=== PATIENT | female | born 1965 | race Caucasian/White ===

== ENCOUNTER 2019-02-12 14:53 | Inpatient (IN) ==
[2019-02-12 16:38] LABS: Appearance Urine Clear (Clear); Bilirubin Urine Negative (Negative); Blood Urine Trace (Negative); Color Urine Yellow; Glucose Urine UA Negative (Negative); Ketones Urine Negative (Negative); Leukocyte Esterase Urine Negative (Negative); Nitrite Urine Negative (Negative); Protein Urine Negative (Negative); Specific Gravity Urine <= 1.005 (1.000-1.030); Urobilinogen Urine Negative (Negative)
[2019-02-12 16:49] LABS: Hematocrit (blood only) 31.5 % (37-47); Mean Corpuscular Hemoglobin 29.9 pg (25-34); Mean Corpuscular Hgb Conc 31.7 g/dL (32-36); Mean Corpuscular Volume 94.3 fL (80-100); Nucleated RBC # (auto) 0.02 K/uL (0-0); Nucleated RBC % (auto) 0.5 %; Platelet Count 388 K/uL (130-400); RDW Standard Deviation 51.4 fL (36.4-46.3); Red Blood Count 3.34 M/uL (4.2-5.4); White Blood Count 3.56 K/uL (4.8-10.8)
[2019-02-12 16:52] LABS: Albumin Level 3.4 gm/dl (3.4-5.0); BUN Creatinine Ratio 14.2 (10-20); Calcium 9.3 mg/dl (8.5-10.1); Creatinine Clr Calc Pharmacy 27.3 ml/min; Est GFR (African American) 37.6; Est GFR (Non-African American) 32.4; Potassium 4.9 mmol/L (3.5-5.1)
[2019-02-12 16:53] LABS: Partial Thromboplastin Ratio 1.1; Partial Thromboplastin Time 29.6 Seconds (21.0-31.0); Prothrombin Time 10.3 Seconds (9.0-12.0)
--- NOTE | 2019-02-12 16:53 | XRay Report ---
XR chest 1V portable CLINICAL HISTORY: 53 years-old Female presenting with Sepsis. TECHNIQUE: Portable upright AP view of the chest was obtained. COMPARISON: 02/02/2019. FINDINGS: Cardiomediastinal silhouette normal. Lungs are hyperinflated. No focal opacity. No pleural effusion o r pneumothorax. Osseous structures normal. Upper abdomen normal. IMPRESSION: 1. Hyperinflation could suggest underlying emphysema or other obstructive lung disease. No focal inf iltrate to suggest pneumonia. Electronically signed by: Jamir Dc M.D. 02/12/2019 4:51 PM
[2019-02-12 16:55] LABS: Albumin Globulin Ratio 0.8 (0.9-2); Bilirubin,Total 0.4 mg/dl (0.2-1); Globulin 4.4 gm/dl (2.5-4.0); Total Protein 7.8 gm/dl (6.4-8.2)
[2019-02-12 17:06] LABS: Bacteria Urine 1+ (Negative); RBC Urine 0-4 /hpf (0-4); WBC Urine 0-5 /hpf (0-5)
[2019-02-12 17:20] LABS: Influenza A virus by PCR Neg for Influ A (Neg); Influenza B virus by PCR Neg for Influ B (Neg)
[2019-02-12 17:27] LABS: Dohle Bodies 1+; Immature Granulocytes # (auto) 0.33 K/uL (0.00-0.02); Immature Granulocytes % (auto) 9.3 %; Lymphocytes # (auto) 0.19 K/uL (1.2-3.4); Lymphocytes % (auto) 5.3 %; Monocytes % (auto) 5.6 %; Neutrophils # (auto) 2.84 K/uL (1.4-6.5); Neutrophils % (auto) 79.8 %
[2019-02-12] MEDS ORDERED: CEFEPIME 2,000 MG/20 ML VIAL IV STA (17:35)
[2019-02-12] MEDS ORDERED: SODIUM CHLORIDE 0.9% 1000ML 2,000 ML IV ONE (18:13)
--- NOTE | 2019-02-12 19:53 | Emergency Department Note ---
Entered by Moira Velasquez acting as a scribe for Jose Griffin MD History of Present Illness General Chief complaint: Fever Stated complaint: FEVER, RECENT KIDNEY TRANSPLANT Time Seen by Provider: 02/12/19 15:38 Source: patient Mode of arrival: ambulatory Limitations: no limitations History of Present Illness Provider complaint: Fever Onset (ago): day(s) (yesterday) Severity: similar to prior episodes Pain Consistency: + other (worsening) Maximum Pain Intensity: 0 Quality: + other (fever) Relieved By: + none Associated symptoms: + fever/chills (negative fever, positive chills), + nausea/vomiting (positive nausea, negative vomiting), + weakness and + other (Additional symptoms: fatigue, body aches. Denies: nasal congestion, sore throat); no cough and no rash Treatments prior to arrival: other (Tylenol at 1230) The patient is a 53 year old white female w/ PMHx of hypertension, gout, renal failure, kidney transplant, depression, anxiety, insomnia, lung nodule, proteinuria, lumbar degenerative disc disease who presents to the ED w/ CC of a worsening fever beginning yesterday. The patient reports that she had a slight fever yesterday and that her temperature jt to 103 degrees today. She states that she also had a slight fever when she was evaluated in the beginning of January. She notes that she was discharged 8 days ago on a course of antibiotics that she finished last night. The patient currently also complains of weakness, fatigue, body aches, nausea, and chills, but she denies any cough, vomiting, rashes, nasal congestion, and sore throat. She states that her symptoms feel similar to the flu, although she got the flu shot this year. She continues to report that she has not been eating and drinking much, although her bowel movements have been normal. She indicates that she had a right kidney transplant on November 08 and is still able to make urine. She mentions that she last took Tylenol for her symptoms at 1230 today. Home Medications Home Medications Medication Instructions Recorded Confirmed Type aspirin [Aspir-81] 81 mg PO QAM 12/01/18 02/12/19 History docusate sodium [Colace] 100 mg PO BID PRN 12/01/18 02/12/19 History ipratropium-albuterol [Combivent 1 puff INHALATION Q6H PRN 12/01/18 02/12/19 History Respimat] sulfamethoxazole-trimethoprim 1 tab PO 3XWK 12/01/18 02/12/19 History [Bactrim] tacrolimus [Prograf] 2 mg PO BID 12/01/18 02/12/19 History valganciclovir [Valcyte] 450 mg PO DAILY 12/01/18 02/12/19 History prednisone 5 mg PO QAM 02/02/19 02/12/19 History allopurinol 100 mg PO DAILY 02/12/19 02/12/19 History amlodipine 5 mg PO DAILY 02/12/19 02/12/19 History carvedilol 6.25 mg PO BID 02/12/19 02/12/19 History fluconazole 200 mg PO WK 02/12/19 02/12/19 History mycophenolate mofetil 1,000 mg PO BID 02/12/19 02/12/19 History omeprazole 20 mg PO QAM 02/12/19 02/12/19 History Allergies Allergy/AdvReac Type Severity Reaction Status Date / Time No Known Drug Allergies Allergy . Verified 02/12/19 16:50 Past Med/Surg History Social History Feels Safe at Home: Yes Smoking Status: Never smoker Review of Systems See HPI for pertinent positives & negatives. and A total of 10 systems reviewed and were otherwise negative Physical Exam Vital Signs Vital Signs - 24 hr 02/12/19 15:06 02/12/19 16:25 02/12/19 16:38 Temperature 36.9 C Temperature Source Oral Pulse Rate 94 H 78 79 Pulse Rate from SpO2 Sensor Pulse Rhythm Regular Pulse Strength Normal Respiratory Rate 20 19 16 Respiratory Effort / Characteristics Non-Labored Spontaneous Respiratory Depth Normal Respiratory Pattern Regular Blood Pressure 109/66 107/59 L Blood Pressure Mean 80 65 Blood Pressure Position Sitting Pulse Oximetry 99 Oxygen Delivery Method Room Air Sepsis Recent Fever Within 48 Hours No Sepsis Action Taken by Nursing No Action Required 02/12/19 17:00 02/12/19 17:30 02/12/19 18:00 Temperature Temperature Source Pulse Rate 72 77 73 Pulse Rate from SpO2 Sensor Pulse Rhythm Pulse Strength Respiratory Rate 24 17 Respiratory Effort / Characteristics Respiratory Depth Respiratory Pattern Blood Pressure Blood Pressure Mean Blood Pressure Position Pulse Oximetry Oxygen Delivery Method Sepsis Recent Fever Within 48 Hours Sepsis Action Taken by Nursing 02/12/19 18:12 02/12/19 18:13 02/12/19 18:30 Temperature Temperature Source Pulse Rate 74 71 70 Pulse Rate from SpO2 Sensor 74 71 70 Pulse Rhythm Pulse Strength Respiratory Rate 13 16 19 Respiratory Effort / Characteristics Respiratory Depth Respiratory Pattern Blood Pressure 116/69 119/77 Blood Pressure Mean 78 96 Blood Pressure Position Pulse Oximetry 98 98 98 Oxygen Delivery Method Sepsis Recent Fever Within 48 Hours Sepsis Action Taken by Nursing 02/12/19 18:31 02/12/19 19:06 Temperature Temperature Source Pulse Rate 73 Pulse Rate from SpO2 Sensor 73 80 Pulse Rhythm Pulse Strength Respiratory Rate 21 Respiratory Effort / Characteristics Respiratory Depth Respiratory Pattern Blood Pressure Blood Pressure Mean Blood Pressure Position Pulse Oximetry 98 98 Oxygen Delivery Method Sepsis Recent Fever Within 48 Hours Sepsis Action Taken by Nursing GENERAL: Well appearing, well nourished, NAD, non-toxic, very thin in appearance. EYE EXAM: Normal conjunctiva. PERRL, no anisocoria and EOM's grossly intact w/o pain. OROPHARYNX: Dry mucous membranes. Grossly normal dentition. NECK: Supple, no nuchal rigidity, no adenopathy, non-tender. No signs of meningismus. LUNGS: Clear to auscultation. Normal chest wall mechanics. HEART: NSR, no MRG. ABDOMEN: Abdomen soft, non-tender, normo-active bowel sounds, no masses, no rebound or guarding. BACK: No CVA TTP. SKIN: No rashes and no bruising. UPPER EXTREMITIES: Upper extremities are grossly normal. LOWER EXTREMITIES: No pitting edema. No calf pain. NEURO EXAM: A&O x3, cranial nerves II-XII grossly intact, normal speech, moves all 4 extremities on command w/o issue. Course Course 1552: The patient was evaluated in room B2, and a complete history and physical examination were performed. 1555: Orders were placed. The patient was placed on a school bus monitor at this t hermelindo. 180: I reviewed the patient's case with Dr. Patterson - Transplant ServiceTabitha. Dr. Patterson stated that the patient does not require transfer but should be admitted unless she has some precipitous decline. 1802: I checked on the patient and updated her on her results. She verbalized agreement to the treatment plan. 1811: I reviewed the patient's case with Tabitha Ortiz PA-C. Dr. Kim - HospitalistTabitha will evaluate the patient for further management. Consultations Consultation #1: I reviewed the patient's case with Dr. Patterson - Transplant ServiceTabitha. Dr. Patterson stated that the patient does not require transfer but should be admitted unless she has some precipitous decline. Time: 18:02 Consultation #2: I reviewed the patient's case with Tabitha Ortiz PA-C. Dr. Kim - HospitalistTabitha will evaluate the patient for further management. Time: 18:12 Administered Medications Sodium Chloride (Nss 1000ml) 2,000 mls @ 999 mls/hr IV .Q2H1M ONE Stop: 02/12/19 20:13 Last Admin: 02/12/19 18:17 Dose: 999 mls/hr Documented by: [id number] Discontinued Medications Cefepime HCl (Maxipime) 2,000 mg in 20 mls @ 5 mls/min IV NOW STA; Protocol Stop: 02/12/19 17:38 Last Admin: 02/12/19 18:12 Dose: 5 mls/min Documented by: [id number] Medical Decision Making Differential Diagnosis Differential diagnosis: Etiologies such as viral syndrome, otitis, pharyngitis, pneumonia, influenza, me ningitis, urinary tract infection, sepsis, bacteremia, as well as others were entertained. Medical Records Attestation: I reviewed the patient's medical records. I reviewed portions of the patient's old chart on the electronic medical record. The patient was recently transferred to [facility] for a fever in a renal transplant patient. Per the patient's hospital discharge summary from Dr. Mistry, the patient had E. coli that grew from a urine culture here at [facility]. The patient was started on broad spectrum antibiotics and transitioned to by mouth. She was on Bactrim prior to this. Home Medications Current Medication List: was personally reviewed by me Laboratory Data Attestation: I reviewed the patient's lab results. Result diagrams: 02/12/19 16:11 02/12/19 16:11 Lab Results 02/12/19 02/12/19 02/12/19 Range/Units 16:11 16:11 16:11 WBC 3.56 L (4.8-10.8) K/uL RBC 3.34 L (4.2-5.4) M/uL Hgb 10.0 L (12.0-16.0) g/dL Hct 31.5 L (37-47) % MCV 94.3 (80-100) fL MCH 29.9 (25-34) pg MCHC 31.7 L (32-36) g/dL RDW Std Deviation 51.4 H (36.4-46.3) fL RDW Coeff of Tena 15.0 H (11.5-14.5) % Plt Count 388 (130-400) K/uL MPV 9.0 (7.4-10.4) fL Immature Gran % (Auto) 9.3 % Neut % (Auto) 79.8 % Lymph % (Auto) 5.3 % Craven % (Auto) 5.6 % Eos % (Auto) 0.0 % Baso % (Auto) 0.0 % Immature Gran # (Auto) 0.33 H (0.00-0.02) K/uL Neut # (Auto) 2.84 (1.4-6.5) K/uL Lymph # (Auto) 0.19 L (1.2-3.4) K/uL Craven # (Auto) 0.20 (0.11-0.59) K/uL Eos # (Auto) 0.00 (0-0.5) K/uL Baso # (Auto) 0.00 (0-0.2) K/uL Absolute Nucleated RBC 0.02 H (0-0) K/uL Nucleated RBC % (auto) 0.5 % Hypersegmented Neuts Occasional Dohle Bodies 1+ PT 10.3 (9.0-12.0) Seconds INR 1.0 (0.9-1.1) APTT 29.6 (21.0-31.0) Seconds PTT Ratio 1.1 Sodium 132 L (136-145) mmol/L Potassium 4.9 (3.5-5.1) mmol/L Chloride 100 (98-107) mmol/L Carbon Dioxide 23 (21-32) mmol/L Anion Gap 9.0 (3-11) BUN 25 H (7-18) mg/dl Creatinine 1.76 H (0.6-1.2) mg/dl Est Cr Clr Drug Dosing 27.3 ml/min Est GFR ( Amer) 37.6 Est GFR (Non-Af Amer) 32.4 BUN/Creatinine Ratio 14.2 (10-20) Glucose 152 H (70-99) mg/dl Lactate (0.4-2.0) mmol/L Calcium 9.3 (8.5-10.1) mg/dl Total Bilirubin 0.4 (0.2-1) mg/dl AST 20 (15-37) U/L ALT 15 (12-78) U/L Alkaline Phosphatase 106 (45-117) U/L Total Protein 7.8 (6.4-8.2) gm/dl Albumin 3.4 (3.4-5.0) gm/dl Globulin 4.4 H (2.5-4.0) gm/dl Albumin/Globulin Ratio 0.8 L (0.9-2) Procalcitonin (0-0.5) ng/ml Urine Color Urine Appearance (Clear) Urine pH (4.5-7.5) Ur Specific Wilton (1.000-1.030) Urine Protein (Negative) Urine Glucose (UA) (Negative) Urine Ketones (Negative) Urine Blood (Negative) Urine Nitrite (Negative) Urine Bilirubin (Negative) Urine Urobilinogen (Negative) Ur Leukocyte Esterase (Negative) Urine RBC (0-4) /hpf Urine WBC (0-5) /hpf Ur Epithelial Cells (0-5) /lpf Urine Bacteria (Negative) Influenza Type A (PCR) (Neg) Influenza Type B (PCR) (Neg) 02/12/19 02/12/19 02/12/19 Range/Units 16:11 16:11 16:25 WBC (4.8-10.8) K/uL RBC (4.2-5.4) M/uL Hgb (12.0-16.0) g/dL Hct (37-47) % MCV (80-100) fL MCH (25-34) pg MCHC (32-36) g/dL RDW Std Deviation (36.4-46.3) fL RDW Coeff of Tena (11.5-14.5) % Plt Count (130-400) K/uL MPV (7.4-10.4) fL Immature Gran % (Auto) % Neut % (Auto) % Lymph % (Auto) % Craven % (Auto) % Eos % (Auto) % Baso % (Auto) % Immature Gran # (Auto) (0.00-0.02) K/uL Neut # (Auto) (1.4-6.5) K/uL Lymph # (Auto) (1.2-3.4) K/uL Craven # (Auto) (0.11-0.59) K/uL Eos # (Auto) (0-0.5) K/uL Baso # (Auto) (0-0.2) K/uL Absolute Nucleated RBC (0-0) K/uL Nucleated RBC % (auto) % Hypersegmented Neuts Dohle Bodies PT (9.0-12.0) Seconds INR (0.9-1.1) APTT (21.0-31.0) Seconds PTT Ratio Sodium (136-145) mmol/L Potassium (3.5-5.1) mmol/L Chloride (98-107) mmol/L Carbon Dioxide (21-32) mmol/L Anion Gap (3-11) BUN (7-18) mg/dl Creatinine (0.6-1.2) mg/dl Est Cr Clr Drug Dosing ml/min Est GFR ( Amer) Est GFR (Non-Af Amer) BUN/Creatinine Ratio (10-20) Glucose (70-99) mg/dl Lactate 0.9 (0.4-2.0) mmol/L Calcium (8.5-10.1) mg/dl Total Bilirubin (0.2-1) mg/dl AST (15-37) U/L ALT (12-78) U/L Alkaline Phosphatase (45-117) U/L Total Protein (6.4-8.2) gm/dl Albumin (3.4-5.0) gm/dl Globulin (2.5-4.0) gm/dl Albumin/Globulin Ratio (0.9-2) Procalcitonin 0.65 H (0-0.5) ng/ml Urine Color Yellow Urine Appearance Clear (Clear) Urine pH 6.0 (4.5-7.5) Ur Specific Wilton <= 1.005 (1.000-1.030) Urine Protein Negative (Negative) Urine Glucose (UA) Negative (Negative) Urine Ketones Negative (Negative) Urine Blood Trace H (Negative) Urine Nitrite Negative (Negative) Urine Bilirubin Negative (Negative) Urine Urobilinogen Negative (Negative) Ur Leukocyte Esterase Negative (Negative) Urine RBC 0-4 (0-4) /hpf Urine WBC 0-5 (0-5) /hpf Ur Epithelial Cells 10-20 H (0-5) /lpf Urine Bacteria 1+ H (Negative) Influenza Type A (PCR) (Neg) Influenza Type B (PCR) (Neg) 02/12/19 Range/Units 16:25 WBC (4.8-10.8) K/uL RBC (4.2-5.4) M/uL Hgb (12.0-16.0) g/dL Hct (37-47) % MCV (80-100) fL MCH (25-34) pg MCHC (32-36) g/dL RDW Std Deviation (36.4-46.3) fL RDW Coeff of Tena (11.5-14.5) % Plt Count (130-400) K/uL MPV (7.4-10.4) fL Immature Gran % (Auto) % Neut % (Auto) % Lymph % (Auto) % Craven % (Auto) % Eos % (Auto) % Baso % (Auto) % Immature Gran # (Auto) (0.00-0.02) K/uL Neut # (Auto) (1.4-6.5) K/uL Lymph # (Auto) (1.2-3.4) K/uL Craven # (Auto) (0.11-0.59) K/uL Eos # (Auto) (0-0.5) K/uL Baso # (Auto) (0-0.2) K/uL Absolute Nucleated RBC (0-0) K/uL Nucleated RBC % (auto) % Hypersegmented Neuts Dohle Bodies PT (9.0-12.0) Seconds INR (0.9-1.1) APTT (21.0-31.0) Seconds PTT Ratio Sodium (136-145) mmol/L Potassium (3.5-5.1) mmol/L Chloride (98-107) mmol/L Carbon Dioxide (21-32) mmol/L Anion Gap (3-11) BUN (7-18) mg/dl Creatinine (0.6-1.2) mg/dl Est Cr Clr Drug Dosing ml/min Est GFR ( Amer) Est GFR (Non-Af Amer) BUN/Creatinine Ratio (10-20) Glucose (70-99) mg/dl Lactate (0.4-2.0) mmol/L Calcium (8.5-10.1) mg/dl Total Bilirubin (0.2-1) mg/dl AST (15-37) U/L ALT (12-78) U/L Alkaline Phosphatase (45-117) U/L Total Protein (6.4-8.2) gm/dl Albumin (3.4-5.0) gm/dl Globulin (2.5-4.0) gm/dl Albumin/Globulin Ratio (0.9-2) Procalcitonin (0-0.5) ng/ml Urine Color Urine Appearance (Clear) Urine pH (4.5-7.5) Ur Specific Wilton (1.000-1.030) Urine Protein (Negative) Urine Glucose (UA) (Negative) Urine Ketones (Negative) Urine Blood (Negative) Urine Nitrite (Negative) Urine Bilirubin (Negative) Urine Urobilinogen (Negative) Ur Leukocyte Esterase (Negative) Urine RBC (0-4) /hpf Urine WBC (0-5) /hpf Ur Epithelial Cells (0-5) /lpf Urine Bacteria (Negative) Influenza Type A (PCR) Neg for Influ A (Neg) Influenza Type B (PCR) Neg for Influ B (Neg) Imaging Data Radiologist's Impression: Radiology results as stated below per my review and the radiologist's interpretation: XR chest 1V portable CLINICAL HISTORY: 53 years-old Female presenting with Sepsis. TECHNIQUE: Portable upright AP view of the chest was obtained. COMPARISON: 02/02/2019. FINDINGS: Cardiomediastinal silhouette normal. Lungs are hyperinflated. No focal opacity. No pleural effusion or pneumothorax. Osseous structures normal. Upper abdomen normal. IMPRESSION: 1. Hyperinflation could suggest underlying emphysema or other obstructive lung disease. No focal infiltrate to suggest pneumonia. Electronically signed by: Jamir Dc M.D. 02/12/2019 4:51 PM Blood Pressure Blood Pressure Findings: Normal blood pressure MDM Narrative The patient is a 53 year old white female w/ PMHx of hypertension, gout, renal failure, kidney transplant, depression, anxiety, insomnia, lung nodule, proteinuria, lumbar degenerative disc disease who presents to the ED w/ CC of a worsening fever beginning yesterday. Patient was seen and evaluated the bedside. The patient had related of developing fever. The patient did have a recent transferred admission for fever and transplant. The patient did have blood work lactate and blood cultures and urine. The patient does have some mild leukopenia. Chronic and stable anemia. The patient has normal coagulation studies. Potentially mild SOLOMON. The patient was ordered IV fluids. The patient's pro Ralph is elevated. Flu is negative. Urinalysis does not appear to be grossly infected. We will order a MRSA swab and start on cefepime given the patient's immunocompromised status and recent history. This does appear to be more viral however, we will continue to treat empirically until cultures come back or another source presents. No signs of any cellulitis or rash. I did speak with the transfer center and spoke with Dr. Patterson with the transplant team at [facility] who after further discussion was agreeable to have the patient admitted at [facility] and if anything changed could consider transfer in the future. I believe is reasonable at this time as the patient does not appear toxic and has reassuring vitals. I did speak the on-call hospitalist agreed to further evaluate treat the patient. Patient was admitted to the medicine service. Impression & Plan Fever, Kidney transplanted, History of immunosuppressive therapy, Leukopenia Discharge Plan Visit Data Chief Complaint: Fever Stated Complaint: FEVER, RECENT KIDNEY TRANSPLANT ED Provider: Jose Griffin Discharge Problem: Fever, Kidney transplanted, History of immunosuppressive therapy, Leukopenia Patient Disposition: Admitted As Inpatient Forms Stand Alone Forms: My [facility] Prescriptions Prescriptions: No Action valganciclovir [Valcyte] 450 mg Tablet 450 mg PO DAILY RF: 0 sulfamethoxazole-trimethoprim [Bactrim] 400-80 mg Tablet 1 tab PO 3XWK RF: 0 aspirin [Aspir-81] 81 mg Tablet,Delayed Release (Dr/Ec) 81 mg PO QAM RF: 0 docusate sodium [Colace] 100 mg Capsule 100 mg PO BID PRN (Reason: Constipation) RF: 0 tacrolimus [Prograf] 1 mg Capsule 2 mg PO BID RF: 0 Combivent Respimat 20-100 mcg/actuation Mist 1 puff INHALATION Q6H PRN (Reason: Shortness Of Breath Or Wheezing) RF: 0 prednisone 5 mg tablet 5 mg PO QAM RF: 0 carvedilol 6.25 mg tablet 6.25 mg PO BID RF: 0 mycophenolate mofetil 250 mg capsule 1,000 mg PO BID RF: 0 fluconazole 200 mg tablet 200 mg PO WK RF: 0 amlodipine 5 mg tablet 5 mg PO DAILY RF: 0 allopurinol 100 mg tablet 100 mg PO DAILY RF: 0 omeprazole 20 mg capsule,delayed release(DR/EC) 20 mg PO QAM RF: 0 Referrals Referrals: Ady Bailey DO [Primary Care Provider] - Discharge Problem: Fever Qualifiers: Fever type: unspecified Qualified Code(s): R50.9 - Fever, unspecified Leukopenia Qualifiers: Leukopenia type: unspecified Qualified Code(s): D72.819 - Decreased white blood cell count, unspecified The scribe's documentation has been prepared under my direction and personally reviewed by me in its entirety. I confirm that the note above accurately reflects all work, treatment, procedures, and medical decision making performed by me.
--- NOTE | 2019-02-12 20:03 | History & Physical Report ---
Date of Service February 12, 2019 Assessment & Plan (1) Fever: (2) Recent urinary tract infection: This is a 53-year-old female with a PMH of R kidney transplant with HCV+ organ performed on 11/08/18 for unknown cause and recent E. coli UTI who presents with fever since yesterday. -Recent E. coli UTI during [facility] admission on February 02. Completed Keflex course yesterday, then developed fever (tmax 103 F) and chills and decreased appetite -In ED, patient afebrile and hemodynamically stable. Leukopenic at 3.56. Cr 1.76 (Cr ~1.4-1.9 over past few months). Lactate normal. UA with 1+ bacteria and no urine nitrite or leuk esterase -ED physician discussed with Dr. Patterson of [facility] transplant service, who feels comfortable with patient staying at [facility] for empiric abx with cefepime while awaiting urine and blood cultures -Blood and urine cultures pending, MRSA swab pending (3) S/P kidney transplant: (4) History of immunosuppressive therapy: H/o R renal transplant with HCV+ organ performed on 11/08/18 at [facility] for unknown cause -Continue immunosuppression regimen of Prograf (dose recently decreased to 1mg QAM and 0.5mg WPM on 02/[address] Thompson), Cellcept 1 g BID and prednisone 5mg daily -Monitor kidney function closely -Nephro consulted (5) HTN (hypertension): Normotensive -Continue carvedilol, amlodipine DVT Ppx: SCDs Code status: FULL PCP: Leo Dispo: Admitted to PCU. Case mgmt consult placed for questions regarding recent insurance change Patient seen in collaboration with Dr. Kim. Please see addendum. History of Present Illness Chief Complaint: Fever, recent UTI Primary Care Provider: Ady Bailey, This is a 53-year-old female with a PMH of R kidney transplant with HCV+ organ performed on 11/08/18 for unknown cause and recent E. coli UTI who presents with fever since yesterday. Patient was transferred to [facility] on February 02 due to fever of 103.5 in the setting of recent renal transplant. Was evaluated at [facility] and urine culture grew E. coli. Resp PCR, CMV, EBV were negative. Was discharged home on Keflex course, which she completed yesterday. Patient has been feeling better until yesterday afternoon when she developed a fever of 100.1 with associated chills and decreased appetite. Fever increased to 103 F today, so she came to the ED for further evaluation. Endorses cloudy urine but denies hematuria pyuria or dysuria. No lightheadedness, visual changes, cough, sore throat, chest pain, palpitations, shortness of breath, vomiting, abdominal pain, diarrhea or constipation. Took Tylenol prior to arrival. In ED, patient found to be afebrile and hemodynamically stable. Leukopenic at 3.56 with hgb stable ~10. Cr 1.76 (downtrending from 1.99 10 days ago). Lactate normal. UA with 1+ bacteria and no urine nitrite or leuk esterase. ED physician discussed with Dr. Patterson of [facility] transplant service, who feels comfortable with patient staying at [facility] for empiric abx with cefepime while awaiting urine and blood cultures. Patient to continue immunosuppression regimen of Prograf (dose recently decreased to 1mg QAM and 0.5mg WPM on 02/[address] Thompson), Cellcept 1 g BID and prednisone 5mg daily. Allergies Allergy/AdvReac Type Severity Reaction Status Date / Time No Known Drug Allergies Allergy . Verified 02/12/19 16:50 Home Medications Home Medications Medication Instructions Recorded Confirmed Type aspirin [Aspir-81] 81 mg PO QAM 12/01/18 02/12/19 History docusate sodium [Colace] 100 mg PO BID PRN 12/01/18 02/12/19 History sulfamethoxazole-trimethoprim 1 tab PO MOWEFR@0900 12/01/18 02/12/19 History [Bactrim] valganciclovir [Valcyte] 450 mg PO DAILY 12/01/18 02/12/19 History prednisone 5 mg PO QAM 02/02/19 02/12/19 History allopurinol 100 mg PO DAILY 02/12/19 02/12/19 History amlodipine 5 mg PO DAILY 02/12/19 02/12/19 History carvedilol 6.25 mg PO BID 02/12/19 02/12/19 History fluconazole 200 mg PO MO@0900 02/12/19 02/12/19 History ipratropium-albuterol [Combivent 1 puff INHALATION Q6H PRN 02/12/19 02/12/19 History Respimat] mycophenolate mofetil 1,000 mg PO BID 02/12/19 02/12/19 History omeprazole 20 mg PO QAM 02/12/19 02/12/19 History tacrolimus [Prograf] 0.5 mg PO HS 02/12/19 02/12/19 History tacrolimus [Prograf] 1 mg PO DAILY 02/12/19 02/12/19 History Past Med/Surg History Medical History (Updated 02/13/19 @ 08:53 by Roberta Jacobs MD, PhD) Depression with anxiety Gout chronic of right foot, 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 Pt reports sudden renal failure, without dialysis. Peritoneal catheter placement scheduled but received transplant prior to cath placement. History of hysterectomy (Chronic) Family History Other Family history not known due to adoption Social History Preferred Language: Setswana Beliefs That Will Affect Care: None Current Living Situation: Alone Feels Safe at Home: Yes Safety Concerns: Feels Safe At This Time Smoking Status: Former smoker Hx Alcohol Use: No Hx Substance Use: No Review of Systems Review of Systems: At least ten systems reviewed and negative except as noted in the HPI. Physical Exam Physical Exam: General Appearance: WD/WN, vitals as above, NAD, sitting up in bed, pleasant, conversing easily Head: normocephalic, atraumatic Eyes: normal inspection, PERRL, conjunctivae normal, anicteric sclerae ENT: external ear and nose normal, oropharynx normal Neck: trachea midline, no thyromegaly normal visual inspection Respiratory: lungs clear to auscultation, no wheeze, rales, rhonchi. Normal insp/exp effort, no accessory muscle use Cardiovascular: regular rate, rhythm, no murmur, normal peripheral pulses. Vessels: no JVD or carotid bruit Chest: normal inspection of chest Abdomen/GI: normal bowel sounds, soft, nontender, no hepatosplenomegaly Extremities/Musculoskelatal: no cyanosis or clubbing, extremities motor strength 5/5 Neurologic: PERRL, EOMI, accommodation nl, no face palsy, no dysarthria CN's II-XI intact bilaterally and moves all extremities Psychiatric: A+Ox3, euthymic affect Skin: no rashes, normal color, warm/dry Results & Data Vital Signs (Past 12 Hours) Vital Signs Temp Pulse Resp BP Pulse Ox 02/12/19 19:06 98 02/12/19 18:31 73 21 98 02/12/19 18:30 70 19 119/77 98 02/12/19 18:13 71 16 98 02/12/19 18:12 74 13 116/69 98 02/12/19 18:00 73 17 02/12/19 17:30 77 24 02/12/19 17:00 72 02/12/19 16:38 79 16 02/12/19 16:25 78 19 107/59 L 02/12/19 15:06 36.9 C 94 H 20 109/66 99 Laboratory Results Short CBC 02/12/19 02/12/19 Range/Units 16:11 16:11 WBC 3.56 L (4.8-10.8) K/uL RBC 3.34 L (4.2-5.4) M/uL Hgb 10.0 L (12.0-16.0) g/dL Hct 31.5 L (37-47) % Plt Count 388 (130-400) K/uL Creatinine 1.76 H (0.6-1.2) mg/dl BMP 02/12/19 16:11 Sodium 132 L Potassium 4.9 Chloride 100 Carbon Dioxide 23 BUN 25 H Creatinine 1.76 H Glucose 152 H Calcium 9.3 Liver Function 02/12/19 Range/Units 16:11 Total Bilirubin 0.4 (0.2-1) mg/dl AST 20 (15-37) U/L ALT 15 (12-78) U/L Alkaline Phosphatase 106 (45-117) U/L Albumin 3.4 (3.4-5.0) gm/dl Urine 02/12/19 Range/Units 16:25 Urine Color Yellow Urine Appearance Clear (Clear) Urine pH 6.0 (4.5-7.5) Ur Specific [place] <= 1.005 (1.000-1.030) Urine Protein Negative (Negative) Urine Glucose (UA) Negative (Negative) Diagnostic Findings CXR: IMPRESSION: 1. Hyperinflation could suggest underlying emphysema or other obstructive lung disease. No focal infiltrate to suggest pneumonia. Code Status & VTE Plan VTE Prophylaxis Plan VTE Prophylaxis will be ordered: Yes Supervising Physician Co-Signing Physician Notes Care coordinated with otoniel Fernandez PA-C. Agree with above note. Patient seen and examined. Please refer to her notes for full details. Vital signs reviewed. Physical exam: General exam: Alert and oriented. Not in acute distress. CVS: S1 and S2 heard, regular rate and rhythm, no murmurs. RS: Clear to auscultation, no wheezing or crackles. ABD: Soft, bowel sounds present, nontender, no distention. POST ACUTE CARE NURSE: Nonfocal. EXT: No edema, no erythema. Labs: Reviewed. Assessment and plan: 53F who recently had renal transplant (10/2018)with HCV + donor and just completed HCV treatment, On feb 02 she was transferred from [facility] to [facility] because of high fevers and found to have e.coli UTI was treated and discharged home with po keflex. Just finished keflex. Yesterday (02/11) she felt mild feverish and today morning (02/12) she woke with fever of 101F and later it was 103F and she came to ER. Possible UTI. Er physician talked with [facility] transplant and was ok to admit to [facility] and start on iv cefepime and follow cx and also MRSA swab. Flu was negative .Currently afebrile and hemodynamically stable. Fevers Leukopenia possible recurrent uti will follow cx possible viral infection flu negative recently treated for e.coli uti on iv cefepime will follow cx currently afebrile and hemodynamically stable S/p renal transplant'for renal failure of unknown cause continue immunosuppressant drugs. cr 1.7 gentle fluids consulted nephrology. Other diagnosis and plan of care as per Jim Keller PA-C. Raymundo mendez MD. (1) Fever Fever type: unspecified Qualified Code(s): R50.9 - Fever, unspecified
[2019-02-12] MEDS ORDERED: IPRATROPIUM BROMIDE/ALBUTEROL respimat INH INH PRN (21:12)
[2019-02-12] MEDS ORDERED: ACETAMINOPHEN 325 MG TAB PO PRN (21:12)
[2019-02-12] MEDS ORDERED: DOCUSATE SODIUM 100 MG CAP PO PRN (21:12)
[2019-02-12] MEDS ORDERED: CEFEPIME CONSULT ACTIVE PRN (21:31)
[2019-02-12] MEDS: MYCOPHENOLATE MOFETIL 250 MG CAP PO SCH (21:58)
[2019-02-12] MEDS: carvediloL 6.25 MG TAB PO SCH (21:59)
[2019-02-12] MEDS: TACROLIMUS 0.5 MG CAP PO SCH (22:00)
[2019-02-12] MEDS: SODIUM CHLORIDE 0.9% 1000ML 1,000 ML IV SCH (22:01)
[2019-02-13 06:21] LABS: Hematocrit (blood only) 28.8 % (37-47); Hemoglobin 8.9 g/dL (12.0-16.0); Mean Corpuscular Hemoglobin 29.4 pg (25-34); Mean Corpuscular Hgb Conc 30.9 g/dL (32-36); Mean Platelet Volume 8.5 fL (7.4-10.4); Platelet Count 300 K/uL (130-400); RDW Coefficient of Variation 15.1 % (11.5-14.5); RDW Standard Deviation 51.6 fL (36.4-46.3); Red Blood Count 3.03 M/uL (4.2-5.4); White Blood Count 2.15 K/uL (4.8-10.8)
[2019-02-13 06:52] LABS: BUN Creatinine Ratio 15.5 (10-20); Calcium 8.5 mg/dl (8.5-10.1); Creatinine Clr Calc Pharmacy 32.5 ml/min; Est GFR (African American) 47.5; Potassium 4.3 mmol/L (3.5-5.1)
[2019-02-13 06:59] LABS: Dohle Bodies 2+; Immature Granulocytes # (auto) 0.02 K/uL (0.00-0.02); Immature Granulocytes % (auto) 0.9 %; Lymphocytes # (auto) 0.31 K/uL (1.2-3.4); Lymphocytes % (auto) 14.4 %; Monocytes # (auto) 0.29 K/uL (0.11-0.59); Monocytes % (auto) 13.5 %; Neutrophils # (auto) 1.53 K/uL (1.4-6.5); Neutrophils % (auto) 71.2 %
[2019-02-13] MEDS: CEFEPIME 2,000 MG in SYRINGE 7.5 ML IV SCH ×2 (07:53→20:34)
[2019-02-13] MEDS: AMLODIPINE BESYLATE 5 MG TAB PO SCH (07:54)
[2019-02-13] MEDS: ASPIRIN 81 MG ECTAB PO SCH (07:54)
[2019-02-13] MEDS: predniSONE 5 MG TAB PO SCH (07:54)
[2019-02-13] MEDS: allopurinoL 100 MG TAB PO SCH (07:54)
[2019-02-13] MEDS: PANTOprazole 40 MG TAB PO SCH (07:55)
[2019-02-13] MEDS: TACROLIMUS 1 MG CAP PO SCH (07:55)
[2019-02-13] MEDS: carvediloL 6.25 MG TAB PO SCH ×2 (07:55→20:31)
[2019-02-13] MEDS: MYCOPHENOLATE MOFETIL 250 MG CAP PO SCH ×2 (07:56→20:31)
--- NOTE | 2019-02-13 08:11 | Nephrology Consultation ---
Date of Consultation February 13, 2019 Assessment & Plan (1) S/P kidney transplant: allograft function currently at/near baseline -lowered MMF to 500 mg bid given differential on CBC; else no immunosuppression changes -daily bmp -cont nephrotoxin avoidance Present on Admission?: Yes (2) History of immunosuppressive therapy: fever work up at [facility] last week negative >> blood cxxs, urine cxs, resp PCR, CMV DNA, plasma BK -reported per pt current OP immunosuppression is tacro 1/0.5; cellcept 1 gm bid; predisone 5 mg daily -on 02/07 she completed 3 month course of glecaprevir-pibretasvir (mavyret) > for f/u blood work 02/15 -her tacrolimus levels during [facility] admission ranged from 10.4-13, 13 on day of d/ c >> FK dose was lowered from 03/01 to 1/0.5 (target 8-10) -remains on valganciclovir, bactrim, weekly fluconazole >>discharged home from [facility] on 02/04 w/ keflex 500 mg bid for presumptive UTI > [facility] urine cx + E coli; urine specimens earlier at OP clinic same day negative; UTI dx not especially convincing from last week to explain F; note that presenting urinalysis/microscopy last evening bland -pls send tacro TROUGH tomorrow AM Present on Admission?: Yes (3) Fever: fever prior to admission; since presentation has been afebrile; had tylenol prior to presentation; recurrent since 01/31. -agree w/ repeat BK PCR serum ->>>would also check for anaplasmosis, CMV serum PCR DNA, HIV ->>>pls consult infectious diseases Present on Admission?: No (4) Lymphopenia: -daily cbc/d; have inquiries pending about whether she had neupogen or not last week ->>>get peripheral smear if not done Present on Admission?: Yes (5) Acute on chronic anemia: -daily CBC/D as above ->>>pls order transferrin sat for am Present on Admission?: Yes History of Present Illness Reason for Consultation: renal transplant pt w/ recurrent F, recent UTI Requesting Physician: Dr Kim Attending Physician: Paddy Tran MD History of Present Illness 53 yo F renal transplant pt whom I'm asked to see for recurrent F after she was admitted yesterday for same; has been afebrile since presentation. She underw ent donor HCV+ renal transplant in October at [facility]. Initially her creatinine stabilized in mid 1's in november; then in December trended up to 1.7- 1.8 range for no clear reason; has bounced 1.4-1.8 ever since; most recently on 02/07 was 1.5. Her immunosuppression is FK 1/0.5 (recently decreased),MMF 1 gm bid, prednisone 5 mg daily. She recently completed mavyret on 02/07/19. She had a mid November allograft bx showing no rejection. Last week on 01/31 she developed F to 102.4 and flulike sx; ER eval recommended but pt refused. Then seen in [facility] txplt clinic 12.5 w/ temp 103.5 w/ emesis (creat 1.8; K 5.3) and sent to [facility] ER w/ transfer to [facility] where she was admitted 02/02-02/04. She had a contaminated urine specimen at [facility] ER w/ E coli on urine cx; dx'd ultimately w/ presumed complicated UTI (do note however that urine studies done same day in OP clinic were negative). All other infectious studies were negative. CMV was undetectable on serum PCR as was BK virus. She has not had other positive urine cxs since transplant or in year prior to it. No voiding sx in since txplt. She was d/c home w/ keflex which she completed on 02/11; then on 02/12 at home had F to 103 w/ chills; took tylenol and came to ER. She has also recently developed neutropenia, lymphopenia, worsening chronic anemia. A differential on CBC on 02/06 at [facility] showed a few intracytoplasmic neutrophilic inclusions; consideration of anaplasmosis PCR recommended; no results found. Since arrival here, she has been not neutropenic but profoundly lymphopenic w/ ongoing acute on chronic anemia (hgb less than 10 now; had been in 10-12 range). There was consideration of her getting neupogen in [facility]; have to verify if had or not. She is currently getting NS at 50 mL hourly and cefepime; no other antimicrobials. She is about 1L + since presentation (one unmeasured void) and has not had abnormal bp, HR. Creatinine was 1.8 on presentation and 1.5 this am. Lactate, transaminases, alk phos wnl. Allergies Allergy/AdvReac Type Severity Reaction Status Date / Time No Known Drug Allergies Allergy . Verified 02/12/19 16:50 Home Medications Home Medications Medication Instructions Recorded Confirmed Type aspirin [Aspir-81] 81 mg PO QAM 12/01/18 02/12/19 History docusate sodium [Colace] 100 mg PO BID PRN 12/01/18 02/12/19 History sulfamethoxazole-trimethoprim 1 tab PO MOWEFR@0900 12/01/18 02/12/19 History [Bactrim] valganciclovir [Valcyte] 450 mg PO DAILY 12/01/18 02/12/19 History prednisone 5 mg PO QAM 02/02/19 02/12/19 History allopurinol 100 mg PO DAILY 02/12/19 02/12/19 History amlodipine 5 mg PO DAILY 02/12/19 02/12/19 History carvedilol 6.25 mg PO BID 02/12/19 02/12/19 History fluconazole 200 mg PO MO@0900 02/12/19 02/12/19 History ipratropium-albuterol [Combivent 1 puff INHALATION Q6H PRN 02/12/19 02/12/19 History Respimat] mycophenolate mofetil 1,000 mg PO BID 02/12/19 02/12/19 History omeprazole 20 mg PO QAM 02/12/19 02/12/19 History tacrolimus [Prograf] 0.5 mg PO HS 02/12/19 02/12/19 History tacrolimus [Prograf] 1 mg PO DAILY 02/12/19 02/12/19 History Patient History Medical History (Updated 02/13/19 @ 08:53 by Roberta Jacobs MD, PhD) Depression with anxiety Gout chronic of right foot, 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 Pt reports sudden renal failure, without dialysis. Peritoneal catheter placement scheduled but received transplant prior to cath placement. 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), + chills, + body aches (had recurrence of flu like sx prior to admission this time as well) and + anorexia; no weight loss Eyes: no worsening vision Ear, Nose, Mouth, Throat: no tinnitus, no sore throat and no dysphagia Respiratory: no cough and no dyspnea Cardiovascular: no chest pain, no palpitations, no lightheadedness and no edema Gastrointestinal: + nausea; no abdominal pain (including no pain over allograft), no early satiety, no vomiting, no change in bowel habits and no diarrhea/loose stools Genitourinary: no dysuria, no difficulty urinating, no urinary frequency, no urinary hesitancy, no urinary urgency, no urinary incontinence and no decreased urination Musculoskeletal: + body aches (prior to admissoin); no back pain, no swelling and no stiffness Integumentary: no rash and no non-healing lesions Neurologic: + generalized weakness; no localized weakness, no loss of sensation, no dizziness, no headache(s), no abnormal speech, no confusion and no memory loss Psychiatric: no behavioral changes Endocrine: + cold intolerance Hematologic / Lymphatic: no easy bleeding, no easy bruising and no night sweats Physical Exam Constitutional: WD/WN, vitals as above well developed, + thin and + cachectic; no acute distress and + uncooperative Eyes: no EOM movement deficit ENMT: Mouth: + dry oral mucous membranes Neck: no nuchal rigidity Respiratory: normal respiratory effort Auscultation: lungs clear to au scultation bilaterally Cardiovascular: RRR, no murmur, no edema Gastrointestinal (Abdomen): normal bowel sounds, soft, nontender, no hepatos plenomegaly NT RLQ allograft Musculoskeletal: Extremities: strength 5/5 throughout Skin: no rashes, warm and dry Neurologic: [place], fluent speech, no tremor Psychiatric: A+Ox3, euthymic affect Genitourinary: no mccarthy Results & Data Vital Signs (Past 12 Hours) Vital Signs Temp Pulse Pulse Pulse Resp BP Pulse Ox 02/13/19 07:11 37.4 C 81 17 117/71 98 02/13/19 04:29 37.5 C 84 16 109/60 96 02/13/19 00:00 62 02/12/19 23:38 37.4 C 79 18 132/70 97 02/12/19 21:15 79 02/12/19 21:00 37.2 C 88 18 154/104 H 98 Laboratory Results 02/13/19 06:01 02/13/19 06:01 influenza swabs negative; BK DNA plasma pending Diagnostic Findings cxr > 1. Hyperinflation could suggest underlying emphysema or other obstructive lung disease. No focal infiltrate to suggest pneumonia. (1) Fever Fever type: unspecified Qualified Code(s): R50.9 - Fever, unspecified
[2019-02-13] MEDS ORDERED: FLUCONAZOLE 100 MG TAB PO SCH (09:00)
[2019-02-13] MEDS ORDERED: SULFA/TRIMETH 400/80MG TAB PO SCH (09:00)
[2019-02-13] MEDS ORDERED: VALGANCICLOVIR 450 MG PO SCH (09:00)
[2019-02-13] MEDS: SODIUM CHLORIDE 0.9% 1000ML 1,000 ML IV SCH (16:39)
[2019-02-13] MEDS ORDERED: CEFEPIME 2,000 MG in SYRINGE 7.5 ML IV SCH (18:00)
[2019-02-13] MEDS: TACROLIMUS 0.5 MG CAP PO SCH (20:31)
--- NOTE | 2019-02-13 21:27 | Hospitalist Progress Note ---
Date of Service February 13, 2019 Assessment & Plan (1) Fever: Recurrent fever in immunosuppressed renal transplant patient. Recent E coli UTI treated with course of cephalexin. No oral, pulmonary, GI, symptoms at this time. Consider recurrent UTI- urine culture negative so far. Patient CMV AB + before transplant and treated with course of valganciclovir. Consider CMV viremia- check CMV PCR. Consider EBV- check PCR. 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 Patient treated with course of glecaprevir / pibrentasvir. HCV unlikely, but will check HCV PCR. History of tick exposure several months ago. Doubt tick-borne disease, but will check tick-borne PCR panel. Continue empiric cefepime. Check US transplanted kidney. Consult ID. Consider noninfectious etiologies if fever persists and no identified infection. Addendum: [place] [facility] [place]18 Varicella zoster IgG + 11/08/18 RPR nonreactive 11/08/18 Quantiferon-TB gold + 11/08/18 HIV 1/2 negative 11/08/18 hep C AB negative 11/08/18 hep B s AG negative 11/08/18 hep B s AB negative 11/08/18 hep B core AB negative 11/08/18 EBV IgG + 11/08/18 CMV IgG + 12/01/18 hep B s AG negative 12/01/18 HCV RNA negative 12/01/18 HBV viral load negative 12/01/18 HIV 1/2 AG/AB negative 12/01/18 RPR nonreactive 12/07/18 hep B s AG negative 12/07/18 HCV RNA negative 12/07/18 HBV viral load negative 12/07/18 hep B s AB negative 12/07/18 HIV 1/2 AG/AB negative 12/07/18 RPR nonreactive 12/12/18 BK virus PCR negative 12/14/18 CMV PCR negative 12/14/18 BK virus PCR negative 12/19/18 BK virus PCR negative 01/05/19 BK virus PCR negative 01/11/19 HCV RNA negative 01/17/19 BK virus PCR negative 01/24/19 BK virus PCR negative 02/01/19 hep B s AG negative 02/01/19 HCV RNA negative 02/01/19 HBV DNA negative 02/01/19 hep B s AB negative 02/01/19 HIV 1/2 AG/AB negative 02/01/19 RPR nonreactive 02/01/19 BK virus DNA negative 02/02/19 CMV IgM negative 02/02/19 CMV IgG + 02/02/19 CMV DNA PCR negative 02/02/19 EBV-VCA IgM negative 02/02/19 EBV-VCA IgG + 02/02/19 EBV DNA PCR negative 02/02/19 blood culture x 2 negative 02/02/19 respiratory PCR negative 02/02/19 urine culture < 10,000 mixed normal kyung (2) S/P kidney transplant: Progressive renal failure. Records reviewed. 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 Apparently exact etiology of renal failure not determined. Status post cadaveric renal transplant 11/08/18 at [facility]. Allograft biopsy 12/14/18- no evidence of rejection. Receiving immunosuppressive therapy with tacrolimus, mycophenolate mofetil, prednisone. Receiving prophylactic Rx with TMP/sulfa and fluconazole. Nephrology consulted. Recent creatinines- 1.7 on 01/05/19, 1.5 on 01/24/19, 1.8 on 02/02/19. Creatinine at time of admission 1.76. Creatinine today = 1.45. (3) Leukopenia: Could be secondary to meds or infection. Follow. (4) Acute on chronic anemia: Could be secondary to meds or infection. Follow. (5) HTN (hypertension): Hemodynamically stable. Continue carvedilol and amlodipine. (6) DVT prophylaxis: SCD's ordered. Ambulate. (7) Discharge planning issues: Anticipated discharge to home. Internal Medicine follow-up with Dr. Bailey. Follow-up with renal [place] team [place] [facility] [place] home health outreach coordinator: Drake Douglass [phone] Subjective Recheck for fever and other problems. Patient seen in their room around 1530. Cadaveric renal transplant recipient. Recent fever attributed to E coli UTI, treated with course of cephalexin. Recurrent fever after finishing course of antibiotic therapy. No pharyngitis, stomatitis. No cough. No nausea, vomiting, diarrhea. No abdominal pain. No dysuria or hematuria. Review of Systems: As noted above. Physical Exam Constitutional: no acute distress Eyes: + anicteric sclerae ENMT: external ear and nose normal, oropharynx normal Respiratory: no respiratory distress Auscultation: lungs clear to auscultation bilaterally Cardiovascular: Rate/Rhythm: regular rate and regular rhythm Heart Sounds: no gallop, no murmur and no cardiac rub Vessels: no JVD Extremities: no calf tenderness and no edema Gastrointestinal (Abdomen): normal bowel sounds, soft, nontender, no hepatosplenomegaly Skin: no rashes, warm and dry Psychiatric: Orientation: alert and oriented x 3 Results & Data Vital Signs (Past 12 Hours) Vital Signs Temp Pulse Pulse Resp BP Pulse Ox 02/13/19 19:37 37.6 C 73 18 109/56 L 99 02/13/19 19:14 37.6 C H 02/13/19 17:51 38.0 C H 02/13/19 16:35 37.7 C H 70 16 122/69 99 02/13/19 16:00 71 02/13/19 10:53 37.4 C 69 18 124/73 99 Laboratory Results Laboratory Results - last 24 hr 02/12/19 02/12/19 02/12/19 16:11 16:11 16:11 WBC 3.56 L RBC 3.34 L Hgb 10.0 L Hct 31.5 L MCV 94.3 MCH 29.9 MCHC 31.7 L RDW Std Deviation 51.4 H RDW Coeff of Tena 15.0 H Plt Count 388 MPV 9.0 Immature Gran % (Auto) 9.3 Neut % (Auto) 79.8 Lymph % (Auto) 5.3 Slope % (Auto) 5.6 Eos % (Auto) 0.0 Baso % (Auto) 0.0 Immature Gran # (Auto) 0.33 H Neut # (Auto) 2.84 Lymph # (Auto) 0.19 L Slope # (Auto) 0.20 Eos # (Auto) 0.00 Baso # (Auto) 0.00 Absolute Nucleated RBC 0.02 H Nucleated RBC % (auto) 0.5 Hypersegmented Neuts Occasional Dohle Bodies 1+ Peripher Smr Path Cons PT 10.3 INR 1.0 APTT 29.6 PTT Ratio 1.1 Sodium 132 L Potassium 4.9 Chloride 100 Carbon Dioxide 23 Anion Gap 9.0 BUN 25 H Creatinine 1.76 H Est Cr Clr Drug Dosing 27.3 Est GFR ( Amer) 37.6 Est GFR (Non-Af Amer) 32.4 BUN/Creatinine Ratio 14.2 Glucose 152 H Lactate Calcium 9.3 Total Bilirubin 0.4 AST 20 ALT 15 Alkaline Phosphatase 106 Total Protein 7.8 Albumin 3.4 Globulin 4.4 H Albumin/Globulin Ratio 0.8 L Procalcitonin Anaplasma Smear A. phagocytophilum DNA BK Virus DNA Quant PCR Virus Source 02/12/19 02/12/19 02/12/19 16:11 16:11 16:11 WBC RBC Hgb Hct MCV MCH MCHC RDW Std Deviation RDW Coeff of Tena Plt Count MPV Immature Gran % (Auto) Neut % (Auto) Lymph % (Auto) Slope % (Auto) Eos % (Auto) Baso % (Auto) Immature Gran # (Auto) Neut # (Auto) Lymph # (Auto) Slope # (Auto) Eos # (Auto) Baso # (Auto) Absolute Nucleated RBC Nucleated RBC % (auto) Hypersegmented Neuts Dohle Bodies Peripher Smr Path Cons PT INR APTT PTT Ratio Sodium Potassium Chloride Carbon Dioxide Anion Gap BUN Creatinine Est Cr Clr Drug Dosing Est GFR ( Amer) Est GFR (Non-Af Amer) BUN/Creatinine Ratio Glucose Lactate 0.9 Calcium Total Bilirubin AST ALT Alkaline Phosphatase Total Protein Albumin Globulin Albumin/Globulin Ratio Procalcitonin 0.65 H Anaplasma Smear A. phagocytophilum DNA BK Virus DNA Quant PCR Pending Virus Source Pending 02/13/19 02/13/19 02/13/19 06:01 06:01 09:52 WBC 2.15 L RBC 3.03 L Hgb 8.9 L Hct 28.8 L MCV 95.0 MCH 29.4 MCHC 30.9 L RDW Std Deviation 51.6 H RDW Coeff of Tena 15.1 H Plt Count 300 MPV 8.5 Immature Gran % (Auto) 0.9 Neut % (Auto) 71.2 Lymph % (Auto) 14.4 Slope % (Auto) 13.5 Eos % (Auto) 0.0 Baso % (Auto) 0.0 Immature Gran # (Auto) 0.02 Neut # (Auto) 1.53 Lymph # (Auto) 0.31 L Slope # (Auto) 0.29 Eos # (Auto) 0.00 Baso # (Auto) 0.00 Absolute Nucleated RBC Nucleated RBC % (auto) Hypersegmented Neuts Dohle Bodies 2+ Peripher Smr Path Cons Cancelled PT INR APTT PTT Ratio Sodium 136 Potassium 4.3 Chloride 107 Carbon Dioxide 21 Anion Gap 8.0 BUN 23 H Creatinine 1.45 H D Est Cr Clr Drug Dosing 32.5 Est GFR ( Amer) 47.5 Est GFR (Non-Af Amer) 41.0 BUN/Creatinine Ratio 15.5 Glucose 91 Lactate Calcium 8.5 Total Bilirubin AST ALT Alkaline Phosphatase Total Protein Albumin Globulin Albumin/Globulin Ratio Procalcitonin Anaplasma Smear See Comment A. phagocytophilum DNA BK Virus DNA Quant PCR Virus Source 02/13/19 09:52 WBC RBC Hgb Hct MCV MCH MCHC RDW Std Deviation RDW Coeff of Tena Plt Count MPV Immature Gran % (Auto) Neut % (Auto) Lymph % (Auto) Slope % (Auto) Eos % (Auto) Baso % (Auto) Immature Gran # (Auto) Neut # (Auto) Lymph # (Auto) Slope # (Auto) Eos # (Auto) Baso # (Auto) Absolute Nucleated RBC Nucleated RBC % (auto) Hypersegmented Neuts Dohle Bodies Peripher Smr Path Cons PT INR APTT PTT Ratio Sodium Potassium Chloride Carbon Dioxide Anion Gap BUN Creatinine Est Cr Clr Drug Dosing Est GFR ( Amer) Est GFR (Non-Af Amer) BUN/Creatinine Ratio Glucose Lactate Calcium Total Bilirubin AST ALT Alkaline Phosphatase Total Protein Albumin Globulin Albumin/Globulin Ratio Procalcitonin Anaplasma Smear A. phagocytophilum DNA Pending BK Virus DNA Quant PCR Virus Source Microbiology 02/12/19 16:03 Blood Aerobic Blood Culture - Preliminary No growth in Aerobic bottle after 24 hours. 02/12/19 16:03 Blood Anaerobic Blood Culture - Preliminary No growth in Anaerobic bottle after 24 hours. 02/12/19 16:10 Blood Aerobic Blood Culture - Preliminary No growth in Aerobic bottle after 24 hours. 02/12/19 16:10 Blood Anaerobic Blood Culture - Preliminary No growth in Anaerobic bottle after 24 hours. 02/12/19 16:25 Urine,Clean Catch Urine Culture - Preliminary No growth - Less than 1,000 colonies/mL, Final report to follow. (1) Fever Fever type: unspecified Qualified Code(s): R50.9 - Fever, unspecified (2) Leukopenia Leukopenia type: unspecified Qualified Code(s): D72.819 - Decreased white blood cell count, unspecified
[2019-02-14] MEDS: MYCOPHENOLATE MOFETIL 250 MG CAP PO SCH ×2 (08:05→20:06)
[2019-02-14] MEDS: TACROLIMUS 1 MG CAP PO SCH (08:06)
[2019-02-14] MEDS: allopurinoL 100 MG TAB PO SCH (08:08)
[2019-02-14] MEDS: ASPIRIN 81 MG ECTAB PO SCH (08:08)
[2019-02-14] MEDS: AMLODIPINE BESYLATE 5 MG TAB PO SCH (08:08)
[2019-02-14] MEDS: predniSONE 5 MG TAB PO SCH (08:09)
[2019-02-14] MEDS: PANTOprazole 40 MG TAB PO SCH (08:09)
[2019-02-14] MEDS: carvediloL 6.25 MG TAB PO SCH ×2 (08:09→19:32)
[2019-02-14 09:24] LABS: Hematocrit (blood only) 29.3 % (37-47); Hemoglobin 9.2 g/dL (12.0-16.0); Mean Corpuscular Hemoglobin 29.3 pg (25-34); Mean Corpuscular Hgb Conc 31.4 g/dL (32-36); Mean Corpuscular Volume 93.3 fL (80-100); Mean Platelet Volume 8.9 fL (7.4-10.4); Platelet Count 260 K/uL (130-400); RDW Coefficient of Variation 14.9 % (11.5-14.5); RDW Standard Deviation 50.5 fL (36.4-46.3); Red Blood Count 3.14 M/uL (4.2-5.4); White Blood Count 0.62 K/uL (4.8-10.8)
[2019-02-14 09:30] LABS: BUN Creatinine Ratio 14.3 (10-20); Calcium 8.8 mg/dl (8.5-10.1); Creatinine Clr Calc Pharmacy 30.6 ml/min; Est GFR (African American) 44.6; Est GFR (Non-African American) 38.5; Potassium 4.3 mmol/L (3.5-5.1)
[2019-02-14 09:48] LABS: Dohle Bodies 1+; Immature Granulocytes # (auto) 0.01 K/uL (0.00-0.02); Immature Granulocytes % (auto) 1.6 %; Lymphocytes # (auto) 0.19 K/uL (1.2-3.4); Lymphocytes % (auto) 30.6 %; Monocytes # (auto) 0.27 K/uL (0.11-0.59); Monocytes % (auto) 43.5 %; Neutrophils # (auto) 0.15 K/uL (1.4-6.5); Neutrophils % (auto) 24.3 %
[2019-02-14] MEDS: CEFEPIME 2,000 MG in SYRINGE 7.5 ML IV SCH ×2 (12:29→19:31)
[2019-02-14] MEDS: SODIUM CHLORIDE 0.9% 1000ML 1,000 ML IV SCH (12:35)
--- NOTE | 2019-02-14 13:51 | Hospitalist Progress Note ---
Date of Service February 14, 2019 Assessment & Plan (1) Fever: Recurrent fever in immunosuppressed renal transplant patient. Recent E coli UTI treated with course of cephalexin. recent [place] [facility] [place]18 Varicella zoster IgG + 11/08/18 RPR nonreactive 11/08/18 Quantiferon-TB gold + 11/08/18 HIV 1/2 negative 11/08/18 hep C AB negative 11/08/18 hep B s AG negative 11/08/18 hep B s AB negative 11/08/18 hep B core AB negative 11/08/18 EBV IgG + 11/08/18 CMV IgG + 12/01/18 hep B s AG negative 12/01/18 HCV RNA negative 12/01/18 HBV viral load negative 12/01/18 HIV 1/2 AG/AB negative 12/01/18 RPR nonreactive 12/07/18 hep B s AG negative 12/07/18 HCV RNA negative 12/07/18 HBV viral load negative 12/07/18 hep B s AB negative 12/07/18 HIV 1/2 AG/AB negative 12/07/18 RPR nonreactive 12/12/18 BK virus PCR negative 12/14/18 CMV PCR negative 12/14/18 BK virus PCR negative 12/19/18 BK virus PCR negative 01/05/19 BK virus PCR negative 01/11/19 HCV RNA negative 01/17/19 BK virus PCR negative 01/24/19 BK virus PCR negative 02/01/19 hep B s AG negative 02/01/19 HCV RNA negative 02/01/19 HBV DNA negative 02/01/19 hep B s AB negative 02/01/19 HIV 1/2 AG/AB negative 02/01/19 RPR nonreactive 02/01/19 BK virus DNA negative 02/02/19 CMV IgM negative 02/02/19 CMV IgG + 02/02/19 CMV DNA PCR negative 02/02/19 EBV-VCA IgM negative 02/02/19 EBV-VCA IgG + 02/02/19 EBV DNA PCR negative 02/02/19 blood culture x 2 negative 02/02/19 respiratory PCR negative 02/02/19 urine culture < 10,000 mixed normal kyung Blood and urine cultures obtained. Received empiric Rx with IV cefepime. Blood and urine cultures negative at 48 hrs- DC cefepime. Pending studies: CMV, EBV, HCV, BK virus, tick-borne illness PCR's. Persistent fevers. Not septic. Consult ID. Consider noninfectious etiologies of fever (drug, transplant rejection, etc.). Arrangements being made for transfer [place] [facility] [place]. (2) S/P kidney transplant: Progressive renal failure. Records reviewed. 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 Apparently exact etiology of renal failure not determined. Status post cadaveric renal transplant 11/08/18 at [facility]. Allograft biopsy 12/14/18- no evidence of rejection. Receiving immunosuppressive therapy with tacrolimus, mycophenolate mofetil, prednisone. Receiving prophylactic Rx with TMP/sulfa and fluconazole. Nephrology consulted. Recent creatinines- 1.7 on 01/05/19, 1.5 on 01/24/19, 1.8 on 02/02/19. Creatinine at time of admission 1.76. Creatinine today = 1.52. (3) Leukopenia: Total WBC at time of admission 3560 (80% polys, 5% lymphs, 6% monos). Total WBC today 620 (24% polys, 30% lymphs, 43% monos). Leukopenia could be secondary to meds or infection. Neutropenic precautions. Consult Hematology. (4) Acute on chronic anemia: Hgb 10.1 at time of admission, 9.2 today. Could be secondary to meds or infection. Follow. (5) HTN (hypertension): Hemodynamically stable. Continue carvedilol and amlodipine. (6) DVT prophylaxis: SCD's ordered. Ambulate. (7) Discharge planning issues: Persistent fever with unknown source in immunocompromised patient. Worsening leukopenia. Arrangements being made for transfer to [facility] for tertiary c are. Case discussed with Dr. Iniguez (attending physician transplant team). Internal Medicine follow-up with Dr. Bailey. Follow-up with renal transplant team [place] [facility] [place]. film sound coordinator: Drake Douglass [phone] Subjective Recheck for fever and other problems. Patient seen in their room around 1130. Tmax 38.0 last 24 hrs. No headache. No pharyngitis, stomatitis. No cough. No nausea, vomiting, diarrhea. No abdominal pain. No dysuria or hematuria. No joint pain. No rash. Review of Systems: As noted above. Physical Exam Constitutional: no acute distress Eyes: + anicteric sclerae ENMT: external ear and nose normal, oropharynx normal Respiratory: no respiratory distress Auscultation: lungs clear to auscultation bilaterally Cardiovascular: Rate/Rhythm: regular rate and regular rhythm Heart Sounds: no gallop, no murmur and no cardiac rub Vessels: no JVD Extremities: no calf tenderness and no edema Gastrointestinal (Abdomen): normal bowel sounds, soft, nontender, no hepatosplenomegaly Skin: no rashes, warm and dry Psychiatric: Orientation: alert and oriented x 3 Results & Data Vital Signs (Past 12 Hours) Vital Signs Temp Pulse Pulse Resp BP Pulse Ox 02/14/19 11:37 36.4 C L 67 18 110/62 99 02/14/19 08:00 87 02/14/19 07:20 37.7 C H 76 18 103/53 L 98 02/14/19 04:22 37.7 C H 85 17 143/72 H 98 Laboratory Results Laboratory Results - last 24 hr 02/14/19 02/14/19 02/14/19 08:24 08:24 08:24 WBC 0.62 L* RBC 3.14 L Hgb 9.2 L Hct 29.3 L MCV 93.3 MCH 29.3 MCHC 31.4 L RDW Std Deviation 50.5 H RDW Coeff of Tena 14.9 H Plt Count 260 MPV 8.9 Immature Gran % (Auto) 1.6 Neut % (Auto) 24.3 Lymph % (Auto) 30.6 [place]ett % (Auto) 43.5 Eos % (Auto) 0.0 Baso % (Auto) 0.0 Immature Gran # (Auto) 0.01 Neut # (Auto) 0.15 L* Lymph # (Auto) 0.19 L [place]ett # (Auto) 0.27 Eos # (Auto) 0.00 Baso # (Auto) 0.00 Dohle Bodies 1+ Peripher Smr Path Cons Sodium 138 Potassium 4.3 Chloride 107 Carbon Dioxide 22 Anion Gap 9.0 BUN 22 H Creatinine 1.52 H Est Cr Clr Drug Dosing 30.6 Est GFR ( Amer) 44.6 Est GFR (Non-Af Amer) 38.5 BUN/Creatinine Ratio 14.3 Glucose 95 Calcium 8.8 Anaplasma Smear CMV DNA Qual PCR Pending EBV Source EBV DNA, Quant EBV DNA (PCR) HCV RNA (PCR) IUs/ml HCV RNA PCR log IUs/ml Miscellaneous Test Ref Lab Test Source Pending 02/14/19 02/14/19 02/14/19 08:24 08:24 08:24 WBC RBC Hgb Hct MCV MCH MCHC RDW Std Deviation RDW Coeff of Tena Plt Count MPV Immature Gran % (Auto) Neut % (Auto) Lymph % (Auto) [place]ett % (Auto) Eos % (Auto) Baso % (Auto) Immature Gran # (Auto) Neut # (Auto) Lymph # (Auto) [place]ett # (Auto) Eos # (Auto) Baso # (Auto) Dohle Bodies Peripher Smr Path Cons Sodium Potassium Chloride Carbon Dioxide Anion Gap BUN Creatinine Est Cr Clr Drug Dosing Est GFR ( Amer) Est GFR (Non-Af Amer) BUN/Creatinine Ratio Glucose Calcium Anaplasma Smear Cancelled CMV DNA Qual PCR EBV Source Pending EBV DNA, Quant Pending EBV DNA (PCR) Pending HCV RNA (PCR) IUs/ml Pending HCV RNA PCR log IUs/ml Pending Miscellaneous Test Pending Ref Lab Test Source Microbiology 02/12/19 16:25 Urine,Clean Catch Urine Culture - Final No growth - less than 1,000 colonies/mL. 02/12/19 16:03 Blood Aerobic Blood Culture - Preliminary No growth in Aerobic bottle after 24 hours. 02/12/19 16:03 Blood Anaerobic Blood Culture - Preliminary No growth in Anaerobic bottle after 24 hours. 02/12/19 16:10 Blood Aerobic Blood Culture - Preliminary No growth in Aerobic bottle after 24 hours. 02/12/19 16:10 Blood Anaerobic Blood Culture - Preliminary No growth in Anaerobic bottle after 24 hours. (1) Fever Fever type: unspecified Qualified Code(s): R50.9 - Fever, unspecified (2) Leukopenia Leukopenia type: unspecified Qualified Code(s): D72.819 - Decreased white blood cell count, unspecified
--- NOTE | 2019-02-14 14:15 | Discharge Summary ---
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 coli UTI who presents with fever since yesterday. Patient was transferred to [facility] on February 02 due to fever of 103.5 in the setting of recent renal transplant. Was evaluated at [facility] and urine culture grew E. coli. Resp PCR, CMV, EBV were negative. Was discharged home on Keflex course, which she completed yesterday. Patient has been feeling better until yesterday afternoon when she developed a fever of 100.1 with associated chills and decreased appetite. Fever increased to 103 F today, so she came to the ED for further evaluation. Endorses cloudy urine but denies hematuria pyuria or dysuria. No lightheadedness, visual changes, cough, sore throat, chest pain, palpitations, shortness of breath, vomiting, abdominal pain, diarrhea or constipation. Took Tylenol prior to arrival. In ED, patient found to be afebrile and hemodynamically stable. Leukopenic at 3.56 with hgb stable ~10. Cr 1.76 (downtrending from 1.99 10 days ago). Lactate normal. UA with 1+ bacteria and no urine nitrite or leuk esterase. ED physician discussed with Dr. Patterson of [facility] transplant service, who feels comfortable with patient staying at [facility] for empiric abx with cefepime while awaiting urine and blood cultures. Patient to continue immunosuppression regimen of Prograf (dose recently decreased to 1mg QAM and 0.5mg WPM on 02/[address] Thompson), Cellcept 1 g BID and prednisone 5mg daily. Principal Diagnosis fever immunosuppression s/p renal transplant leukopenia Discharge Data Allergies Allergy/AdvReac Type Severity Reaction Status Date / Time No Known Drug Allergies Allergy . Verified 02/12/19 16:50 Consultations 02/12/19 19:35 ED Decision to Admit Stat 02/13/19 08:00 Consult Case Management - Discharge Planning Routine Consult Nephrology Routine 02/14/19 08:00 Consult Infectious Diseases Routine Hospital Course (1) Fever: Recurrent fever in immunosuppressed renal transplant patient. Recent E coli UTI treated with course of cephalexin. recent [place] [facility] 11/08[place]18 Varicella zoster IgG + 11/08/18 RPR nonreactive 11/08/18 Quantiferon-TB gold + 11/08/18 HIV 1/2 negative 11/08/18 hep C AB negative 11/08/18 hep B s AG negative 11/08/18 hep B s AB negative 11/08/18 hep B core AB negative 11/08/18 EBV IgG + 11/08/18 CMV IgG + 12/01/18 hep B s AG negative 12/01/18 HCV RNA negative 12/01/18 HBV viral load negative 12/01/18 HIV 1/2 AG/AB negative 12/01/18 RPR nonreactive 12/07/18 hep B s AG negative 12/07/18 HCV RNA negative 12/07/18 HBV viral load negative 12/07/18 hep B s AB negative 12/07/18 HIV 1/2 AG/AB negative 12/07/18 RPR nonreactive 12/12/18 BK virus PCR negative 12/14/18 CMV PCR negative 12/14/18 BK virus PCR negative 12/19/18 BK virus PCR negative 01/05/19 BK virus PCR negative 01/11/19 HCV RNA negative 01/17/19 BK virus PCR negative 01/24/19 BK virus PCR negative 02/01/19 hep B s AG negative 02/01/19 HCV RNA negative 02/01/19 HBV DNA negative 02/01/19 hep B s AB negative 02/01/19 HIV 1/2 AG/AB negative 02/01/19 RPR nonreactive 02/01/19 BK virus DNA negative 02/02/19 CMV IgM negative 02/02/19 CMV IgG + 02/02/19 CMV DNA PCR negative 02/02/19 EBV-VCA IgM negative 02/02/19 EBV-VCA IgG + 02/02/19 EBV DNA PCR negative 02/02/19 blood culture x 2 negative 02/02/19 respiratory PCR negative 02/02/19 urine culture < 10,000 mixed normal kyung Blood and urine cultures obtained. Received empiric Rx with IV cefepime. Blood and urine cultures negative at 48 hrs- DC cefepime. Pending studies: CMV, EBV, HCV, BK virus, tick-borne illness PCR's. Persistent fevers. Not septic. Consult ID. Consider noninfectious etiologies of fever (drug, transplant rejection, etc.). Arrangements being made for transfer to [facility] [place] further evaluation. (2) S/P kidney transplant: Progressive renal failure. Records reviewed. 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 Apparently exact etiology of renal failure not determined. Status post cadaveric renal transplant 11/08/18 at [facility]. Allograft biopsy 12/14/18- no evidence of rejection. Receiving immunosuppressive therapy with tacrolimus, mycophenolate mofetil, prednisone. Receiving prophylactic Rx with TMP/sulfa and fluconazole. Nephrology consulted. Recent creatinines- 1.7 on 01/05/19, 1.5 on 01/24/19, 1.8 on 02/02/19. Creatinine at time of admission 1.76. Creatinine today = 1.52. (3) Leukopenia: Total WBC at time of admission 3560 (80% polys, 5% lymphs, 6% monos). Total WBC day of discharge 620 (24% polys, 30% lymphs, 43% monos). Leukopenia could be secondary to meds or infection. Neutropenic precautions. Consult Hematology. (4) Acute on chronic anemia: Hgb 10.1 at time of admission, 9.2 day of discharge. Could be secondary to meds or infection. Follow. (5) HTN (hypertension): Hemodynamically stable. Continue carvedilol and amlodipine. (6) DVT prophylaxis: SCD's ordered. Ambulate. (7) Discharge planning issues: Persistent fever with unknown source in immunocompromised patient, s/p renal transplant Worsening leukopenia. Arrangements being made for transfer to [facility] for tertiary care. Case discussed with Dr. Iniguez (attending physician transplant team). Internal Medicine follow-up with Dr. Bailey. Follow-up with renal transplant team [place] [facility]. respite coordinator: Drake Douglass [phone] Total Time Total Time Spent Total Time Spent (In Minutes): 45 Discharge Plan Discharge Items Patient Disposition: Transfer Acute Care Hospital Reason For Visit: fever Discharge Diagnosis: fever Condition on Discharge: Fair Activity: Resume your previous activity Non-emergency contact: Primary Care Provider and Hospitalist Call non-emergency contact if: you have any medication questions, your symptoms worsen and your temperature is above 101 Follow-up/Referrals: Ady Bailey DO [Primary Care Provider] - Diet: Regular Addtl Attending Provider Instructions: Neutropenic precautions. Thank you for receiving this patient in transfer. Please call if you have any questions. Paddy Tran Pending Studies at Discharge: Yes Studies:: EBV, CMV, HCV, BK virus, tick-borne illness panel PCR's Stand-Alone Forms: My [facility] Skilled Items Patient informed of condition?: Yes DNR: No Discharge Level of Care: Other Communicable Disease: No Discharge Prognosis: Stable Lines: Peripheral IV Urinary Catheter: No Medications and DC Order Prescriptions: Continued sulfamethoxazole-trimethoprim [Bactrim] 400-80 mg Tablet 1 tab PO MOWEFR@0900 RF: 0 aspirin [Aspir-81] 81 mg Tablet,Delayed Release (Dr/Ec) 81 mg PO QAM RF: 0 docusate sodium [Colace] 100 mg Capsule 100 mg PO BID PRN (Reason: Constipation) RF: 0 prednisone 5 mg tablet 5 mg PO QAM RF: 0 carvedilol 6.25 mg tablet 6.25 mg PO BID RF: 0 mycophenolate mofetil 250 mg capsule 1,000 mg PO BID RF: 0 fluconazole 200 mg tablet 200 mg PO MO@0900 RF: 0 amlodipine 5 mg tablet 5 mg PO DAILY RF: 0 allopurinol 100 mg tablet 100 mg PO DAILY RF: 0 omeprazole 20 mg capsule,delayed release(DR/EC) 20 mg PO QAM RF: 0 Combivent Respimat 20-100 mcg/actuation Mist 1 puff INHALATION Q6H PRN (Reason: Shortness Of Breath Or Wheezing) RF: 0 tacrolimus [Prograf] 0.5 mg Capsule 1 mg PO DAILY RF: 0 tacrolimus [Prograf] 0.5 mg Capsule 0.5 mg PO HS RF: 0 Admission Data Admit Date/Time: 02/12/19 20:00 Attending Provider: Paddy Tran Admit Provider: Raymundo Kim Primary Care Provider: Ady Bailey Other Providers: Raymundo Kim ; Roberta Jacobs ; Jesús Chaudhari ; Yajaira Calle
[2019-02-14] MEDS: TACROLIMUS 0.5 MG CAP PO SCH (20:08)
[2019-02-15 11:45] LABS: BK Virus Source Plasma
[2019-02-16 12:42] LABS: EBV DNA Quant PCR <200 copies/mL (<200); EBV DNA Quant Source Plasma; Hepatitis C Vira RNA (Log) PCR <1.18 NOT DETECTED Log IU/mL (NOT DETECTED); Hepatitis C Viral RNA by PCR <15 NOT DETECTED IU/mL (NOT DETECTED)
[2019-02-16 14:22] LABS: CMV DNA PCR Qual NOT DETECTED; Source Whole Blood
== END 2019-02-14 20:55 | disposition short-term general hospital (02) | DRG 864 ==
LOC: ED 14:53 → 2E 20:00 → SUATTDRO 20:00 → 2E 20:26